=== PATIENT | female | born 1980 | race Caucasian/White ===

== ENCOUNTER 2016-06-15 01:02 | Emergency (ER) | payer OTHER ==
--- NOTE | ~2016-06-15 | CR72 ---
[facility]. [facility] A Service of [facility] RADIOLOGY TEXT RESULTS PATIENT: FRANK JANE LOCATION: SED : 78 UNIT #: [id number] AGE: [address]: Ralph Martinez MD SEX: F ORDER DR: [id number] [place] [id number] E MR#: [id number] Acc #: [id number] NAME: FRANK JANE : 1980 SEX: F STUDY DATE/TIME: 06/15/2016 1:16 UNIT: SED ROOM: STUDY DESCRIPTION: CR Chest Single View Portable Attending Physician: Ralph Martinez M.D. Ordering Physician: Ralph Martinez M.D. Primary Care Physician: Lina Ward A.P.R.N. MEDICAL IMAGING REPORT This report is preliminary unless electronic signature is present. EXAM AP portable chest. Date: 06/15/2016 01:16. HISTORY Chest pain and anxiety since yesterday. Patient states lump found in right breast in physician's office yesterday. COMPARISON PA lateral chest 06/09/2015. FINDINGS A single AP view of the chest shows both lungs to be clear. The heart is normal in size. The mediastinal contour is normal. No significant bone abnormalities are seen. IMPRESSION Normal AP chest. Dictated by... Juliana Chino M.D. THIS IS AN ELECTRONICALLY VERIFIED REPORT Juliana Chino M.D. at 06/15/2016 9:56 PM LLH/gz TD: 06/15/2016 11:22 JOB #: [id number] MEDICAL IMAGING REPORT
--- NOTE | ~2016-06-15 | EKG ---
PATIENT: FRANK JANE UNIT #: [id number] Ventricular Rate: 84 BPM Atrial Rate: 84 BPM P-R Interval: 154 ms QRS Duration: 90 ms Q-T Interval: 372 ms QTC Calculation(Bezet): 439 ms P [place]: 71 degrees Calculated R [place]: 15 degrees Calculated T [place]: 48 degrees Diagnosis Line: Normal sinus rhythm Diagnosis Line: Normal ECG Diagnosis Line: When compared with ECG of 08-JUN-2015 18:22, Diagnosis Line: Vent. rate has decreased BY 43 BPM Diagnosis Line: Confirmed by TARAN MERCHANT MD ([id number]) on Diagnosis Line: 07/24/2016 7:03:16 AM INTERPRETING : SHIRA
[~2016-06-15 01:02] MED LIST: ALBUTEROL17 GM INH; AMOXICILLIN PO; BACTRIM 400-801 TA1 PO; BACTROBAN22 GM TOP; BENZONATATE PO; CIPRO PO; CLEOCIN PO; FLAGYL PO; FLEXERIL10 M1 PO; KEFLEX500 M1 PO; NAPROXEN PO; NO MEDICATIONS; NYSTATIN-TRIAMC15 G1 TOP; PREDNISONE PO; PROVERA10 MG PO; PYRIDIUM PO; TESSALON PERLE PO; TYLENOL #3 PO; VISTARIL PO; VOLTAREN75 MG PO; ZANTAC150 MG PO; ZOFRAN PO; ZOLOFT PO
[2016-06-15 01:18] LABS: BASOPHIL% 0.2 % (0-2.5); EOSINOPHIL% 0.5 % (0.0-7.0); HEMATOCRIT 38.1 % (35.0-45.0); HEMOGLOBIN 12.2 gm/dL (12.0-16.0); LYMPHOCYTE% 20.8 % (17.0-45.0); MEAN CELL VOLUME 73.1 FL (83-96); MEAN CORPUSCULAR HEMOGLOBIN 23.5 PG (28-34); MEAN CORPUSCULAR HGB CONC 32.2 g/dL (30-36); MEAN PLATELET VOLUME 8.1 FL (6.5-11.5); MONOCYTE# 0.6 X10e3 (0-1.0); MONOCYTE% 5.8 % (3.0-12.0); NEUTROPHIL% 72.7 % (40-75); PLATELET COUNT 238 X10e3 (140-420); RED CELL DISTRIBUTION WIDTH 17.8 % (11.0-15.5); WHITE BLOOD COUNT 9.7 X10e3 (4.0-10.5)
[2016-06-15 01:20] LABS: POC - CKMB 1.1 ng/mL (0.0-7.9)
[2016-06-15 01:20] LABS: DIFF IND NO
[2016-06-15 01:21] LABS: POC - MYOGLOBIN 71.8 ng/mL (0.0-169.0); POC - TROPONIN <0.05 ng/mL (<=0.05)
[2016-06-15 01:27] LABS: ALBUMIN SERUM 3.8 g/dL (3.5-5.0); ALKALINE PHOSPHATASE 85 U/L (32-92); ALT (SGPT) 22 U/L (10-40); AST (SGOT) 16 U/L (10-42); BILIRUBIN, DIRECT 0.1 mg/dL (0.0-0.2); BILIRUBIN,INDIRECT 0.4 mg/dL (0.0-0.9); BILIRUBIN,TOTAL 0.5 mg/dL (0.2-2.0); BLOOD UREA NITROGEN 9 mg/dL (9-23); BUN/CREATININE RATIO 12.85; CALCIUM SERUM 8.7 mg/dL (8.4-10.2); CARBON DIOXIDE 27 mmol/L (22-31); CHLORIDE 102 mmol/L (100-111); CREATININE SERUM 0.7 mg/dL (0.6-1.4); GLOM FILT RATE Estimated ABOVE60 mL/min (>60); GLUCOSE FASTING 89 mg/dL (70-110); PROTEIN TOTAL SERUM 7.7 g/dL (6.0-8.3); SODIUM 136 mmol/L (135-145)
== END 2016-06-15 01:54 | disposition home or self-care (01) ==
LOC: SED 01:02
PROVIDERS: Emergency Medicine
DX: R07.9 Chest pain, unspecified (principal); E87.6 Hypokalemia; R03.0 Elevated blood-pressure reading, without diagnosis of hypertension; Z90.49 Acquired absence of other specified parts of digestive tract; Z98.890 Other specified postprocedural states; Z88.6 Allergy status to analgesic agent
CPT/HCPCS: 36415; 71010; 80048; 80076; 82553; 83874; 84484; 85025; 93005; 99284

== ENCOUNTER 2016-12-05 23:23 | Emergency (ER) | payer OTHER ==
[~2016-12-05] VITALS: Ht 172.7 cm; Wt 121.6 kg
== END 2016-12-06 00:10 | disposition home or self-care (01) ==
LOC: SED 23:23
DX: L03.211 Cellulitis of face (principal); Z90.710 Acquired absence of both cervix and uterus; Z87.891 Personal history of nicotine dependence; Z88.6 Allergy status to analgesic agent
CPT/HCPCS: 99283